=== PATIENT | male | born 1975 | race Caucasian/White ===

== ENCOUNTER 2024-11-04 06:36 | Emergency (ER) | payer OTHER ==
[~2024-11-04] VITALS: Ht 172.7 cm; Wt 109.3 kg
[~2024-11-04 06:36] MED LIST: AMITRIPTYLINE10 MG PO; AMITRIPTYLINE100 M1 PO; ETODOLAC300 M1 PO; LIPITOR20 MG PO; MELATONIN3 MG PO
[2024-11-04 07:11] LABS: BASO # 0.0 10*3/uL (0.0-0.1); BASO % 0.3 % (0.0-1.0); EOS # 0.3 10*3/uL (0.0-0.4); EOS % 2.4 % (1.0-4.0); MEAN CELL VOLUME 89.9 fl (80.0-94.0); MEAN CORPUSCULAR HGB 31.4 pg (27.0-31.0); MEAN PLATELET VOLUME 9.9 fl (9.6-12.3); MONO # 0.8 10*3/uL (0.1-1.0); MONO % 6.8 % (3.0-9.0); NEUT # 8.3 10*3/uL (2.3-7.9); NEUT % 73.4 % (47.0-73.0); NUCLEATED RED BLOOD CELL 0.0 % (0.0-0.0); NUCLEATED RED BLOOD CELL 0.0 10*3/uL (0.0-0.0); PLATELET COUNT AUTOMATED 207 10*3/uL (130-400); RED CELL DISTRI WIDTH 12.4 % (0-14.5)
[2024-11-04 07:32] LABS: BUN 8 mg/dl (9-23)
[2024-11-04] MEDS ORDERED: POTASSIUM CHLORIDE 20 MEQ TAB PO ONE (10:00)
[2024-11-04] MEDS ORDERED: diazePAM 10 MG/2 ML SYR IM ONE (10:50)
[2024-11-04 11:43] LABS: BILIRUBIN Negative (Negative); BLOOD Negative (Negative); CLARITY Clear (Clear); COLOR Yellow (Yellow); KETONE Trace (Negative); LEUKO ESTERASE Negative (Negative); NITRITE Negative (Negative); PH 5.5 (4.5-8.0); SPECIFIC GRAVITY 1.020 (1.001-1.030); UROBILINOGEN 1.0 E.U./dl (0.0-1.0)
[2024-11-04 11:50] LABS: URINE AMPHETAMINES Negative (1000ng/ml); URINE BARBITURATES Negative (200ng/ml); URINE BENZODIAZEPINES Negative (200ng/ml); URINE CANNABINOIDS (THC) Positive (50ng/ml); URINE COCAINE Negative (300ng/ml); URINE METHADONE Negative (300ng/ml); URINE OPIATES Negative (300ng/ml); URINE PHENCYCLIDINE Negative (25ng/ml)
[2024-11-04 12:04] LABS: BACTERIA 2+; MUCOUS 1+
[2024-11-04] MEDS ORDERED: LEVETIRACETAM IN NACL (ISO-OS) 100 ML IV ONE (12:50)
[2024-11-04] MEDS ORDERED: KEPPRA500 MG PO ×2 (13:42→15:13)
== END 2024-11-04 18:06 | disposition home or self-care (01) ==
LOC: ED 06:36
PROVIDERS: Emergency Medicine
DX: R56.9 Unspecified convulsions (principal); E87.6 Hypokalemia; F32.A Depression, unspecified; F41.9 Anxiety disorder, unspecified; F12.90 Cannabis use, unspecified, uncomplicated; Z79.899 Other long term (current) drug therapy; Z88.6 Allergy status to analgesic agent; Z90.49 Acquired absence of other specified parts of digestive tract; Z90.89 Acquired absence of other organs